=== PATIENT | male | born 1945 | race Caucasian/White ===

== ENCOUNTER 2023-09-02 18:44 | Emergency (ER) | payer MEDICARE, SELFPAY ==
[2023-09-02 18:54] VITALS: BP 143/77; PULSE 87; RESP 20; TEMP 38.5; O2SAT 98; BMI 33.0
--- NOTE | 2023-09-02 19:06 | XRR_ITS ---
PROCEDURE INFORMATION: Exam: XR Chest Exam date and time: 09/02/2023 7:11 PM Age: 77 years old Clinical indication: Patient HX: Fever; Chills; Hypoglycemia TECHNIQUE: Imaging protocol: Radiologic exam of the chest. Views: 1 view. COMPARISON: No relevant prior studies available. FINDINGS: Tubes, catheters and devices: Left atrial appendage closure device. Heart valve prosthesis. Lungs: Linear atelectasis or scar in the left lung base. The lungs are otherwise clear. Probable emphysema. Pleural spaces: Unremarkable. No pleural effusion. No pneumothorax. Heart/Mediastinum: Unremarkable. No cardiomegaly. Bones/joints: Median sternotomy changes. Degenerative shoulders. XR/XR chest 1V portable [id number] IMPRESSION: No acute findings.
--- NOTE | 2023-09-02 19:25 | ED_ITS ---
HPI - Fever 2 General: Chief Complaint: Fever Stated Complaint: Cold chills, Low blood sugar Time Seen by Provider: 09/02/23 19:02 History of Present Illness: 77-year-old gentleman traveling from [facility]. He has a history of pancreatic cancer in the distant past. He has been off chemotherapy for a year. He presents with a fever today. He has had some chills and aches. a tickle in his throat. They have been staying with family here, and the person he staying with his had a cold . He is experiencing some urinary frequency. No other specific symptoms. No bites or rashes. Physical Exam 2 Const: COMMON NORMALS: no acute distress GENERAL APPEARANCE: cooperative; not ill appearing and not frail appearing HENMT: COMMON NORMALS: normocephalic, atraumatic and Normal external nose present HEAD & SCALP: normocephalic and atraumatic FACE & SINUS: normal facial exam and face symmetric NOSE: Normal external nose present Eye: COMMON NORMALS: Equal, round and reactive pupils present and EOMs intact bilaterally PUPIL: Yes Equal, round and reactive pupils present Neck/C-Spine: GENERAL: Yes trachea midline Chest: CHEST: Yes Symmetrical chest wall rise Resp: COMMON NORMALS: normal respiratory effort, No retractions, No use of accessory muscles and clear to auscultation bilaterally AUSCULTATION: clear to auscultation bilaterally Cardio: COMMON NORMALS: regular rate and regular rhythm RATE: regular rate RHYTHM: regular rhythm GI: COMMON NORMALS: Normal to inspection, nondistended, normoactive bowel sounds present Extremity: COMMON NORMALS: no pedal edema Neuro: CONSUELO COMA SCALE: document GCS findings Pointblank coma scale eye opening: Spontaneous Consuelo coma scale verbal response: Orientated Pointblank coma scale motor response: Obey commands Consuelo coma scale total score: 15 S ENSORY EXAM: Yes extremities (intact) Psych: COMMON NORMALS: speech normal SPEECH: Yes normal speech Skin: COMMON NORMALS: no rashes or lesions noted GENERAL SKIN EXAM: no rashes or lesions noted Course 2 Vital Signs: Vital signs: Vital Signs Temperature 99.0 F 09/02/23 19:28 Pulse Rate 89 09/02/23 22:22 Respiratory Rate 20 H 09/02/23 22:22 Blood Pressure 117/60 09/02/23 22:22 Pulse Oximetry 95 09/02/23 22:22 Oxygen Delivery Me thod Room Air 09/02/23 18:54 MDM - Fever Medical Decision Making Temperature down to 99. His other vitals are stable. His platelet count is 155. Otherwise CBC is normal. BMP not remarkable. Chest x-ray is nonacute. Urinalysis is not remarkable. PCR is positive for COVID-19. Given his age, history of diabetes, he will be treated with Paxlovid. This is scripted him. Warning signs for return given. Lab Data 09/02/23 19:31 09/02/23 19:31 Radiology Impressions Chest X-Ray 09/02/23 19:06 IMPRESSION: No acute findings. Laboratory Results WBC 7.80 10^3/uL (3.29-11.43) 09/02/23 19: RBC 4.83 10^6/uL (3.85-5.65) 09/02/23 19: Hgb 12.50 g/dL (11.27-16.99) 09/02/23 19: Hct 41.0 % (37-53) 09/02/23 19: MCV 84.9 fl (82-101) 09/02/23 19: MCH 25.9 pg (27-33) L 09/02/23 19: MCHC 30.5 g/dL (30-55) 09/02/23 19: RDW 23.4 % (12.1-15.1) H 09/02/23 19:31 Plt Count 155 10^3/cmm (157-399) L 09/02/23 19: MPV 10.0 fL (7.4-10.4) 09/02/23 19:31 Neut % (Auto) 68.7 % 09/02/23 19: Lymph % (Auto) 10.6 % 09/02/23 19: [place] % (Auto) 17.4 % 09/02/23 19: Eos % (Auto) 1.7 % 09/02/23 19: Baso % (Auto) 1.3 % 09/02/23 19: Neut # (Auto) 5.36 10^3/uL (1.8-7.7) 09/02/23 19: Lymph # (Auto) 0.8 10^3/uL (0.8-4.8) 09/02/23 19:31 [place] # (Auto) 1.4 10^3/uL (0.2-0.9) H 09/02/23 19:31 Eos # (Auto) 0.1 10^3/uL (0.0-0.8) 09/02/23 19:31 Baso # (Auto) 0.1 10^3/uL (0.0-0.1) 09/02/23 19:31 Nucleated RBC % (auto) 0.3 % 09/02/23 19:31 Nucleated RBCs # 0.0 /100WBC 09/02/23 19:31 Sodium 138 mmol/L (136-145) 09/02/23 19:31 Potassium 4.5 mmol/L (3.5-5.1) 09/02/23 19:31 Chloride 102 mmol/L (98-107) 09/02/23 19:31 Carbon Dioxide 25 mmol/L (22-29) 09/02/23 19:31 Anion Gap 15.5 (5-19) 09/02/23 19:31 BUN 21 mg/dL (8-23) 09/02/23 19:31 Creatinine 1.2 mg/dL (0.7-1.2) 09/02/23 19:31 GFR Calculation Not Reportable 09/02/23 19:31 Glucose 127 mg/dL (65-115) H 09/02/23 19:31 Calculated Osmolality 291 mOsm/kg (285-295) 09/02/23 19:31 Lactic Acid 1.6 mmol/L (0.5-2.2) 09/02/23 19:31 Calcium 8.9 mg/dL (8.5-10.5) 09/02/23 19:31 Total Bilirubin 0.5 mg/dL (0.15-1.2) 09/02/23 19:31 AST 33 U/L (0-40) 09/02/23 19:31 ALT 30 U/L (0-41) 09/02/23 19:31 Alkaline Phosphatase 121 U/L (40-130) 09/02/23 19:31 Total Protein 7.9 g/dL (6.6-8.7) 09/02/23 19:31 Albumin 4.4 g/dL (3.5-5.2) 09/02/23 19:31 Globulin 3.5 g/dL (1.3-4.6) 09/02/23 19:31 Urine Color Yellow (Yellow) 09/02/23 20:56 Urine Appearance Clear (CLEAR) 09/02/23 20:56 Urine pH 8 (5-7) H 09/02/23 20:56 Ur Specific [place] 1.005 (1.005-1.030) 09/02/23 20:56 Urine Protein 1+ (Negative) H 09/02/23 20:56 Urine Glucose (UA) Norm (Normal) 09/02/23 20:56 Urine Ketones 1+ (Negative) H 09/02/23 20:56 Urine Blood Neg (Negative) 09/02/23 20:56 Urine Nitrate Negative (Negative) 09/02/23 20:56 Urine Bilirubin Neg (Negative) 09/02/23 20:56 Urine Urobilinogen 1 mg/dL (Negative) H 09/02/23 20:56 Ur Leukocyte Esterase Negative (Negative) 09/02/23 20:56 Adenovirus (PCR) Not detected (NOT DETECT) 09/02/23 19:35 C. pneumoniae DNA (PCR) Not detected (NOT DETECT) 09/02/23 19:35 Coronavirus 229E (PCR) Not detected (NOT DETECT) 09/02/23 19:35 Human Metapneumovir PCR Not detected (NOT DETECT) 09/02/23 19:35 Influenza A (H1) PCR Not detected (NOT DETECT) 09/02/23 19:35 Influ A (H1/09) PCR Not detected (NOT DETECT) 09/02/23 19:35 Influenza A (H3) PCR Not detected (NOT DETECT) 09/02/23 19:35 Influenza Type A (PCR) Not detected (NOT DETECT) 09/02/23 19:35 Influenza Type B (PCR) Not detected (NOT DETECT) 09/02/23 19:35 M. pneumoniae (PCR) Not detected (NOT DETECT) 09/02/23 19:35 Parainfluenza 1 (PCR) Not detected (NOT DETECT) 09/02/23 19:35 Parainfluenza 2 (PCR) Not detected (NOT DETECT) 09/02/23 19:35 Parainfluenza 3 (PCR) Not detected (NOT DETECT) 09/02/23 19:35 Parainfluenza 4 (PCR) Not detected (NOT DETECT) 09/02/23 19:35 RSV Type A (PCR) Not detected (NOT DETECT) 09/02/23 19:35 RSV Type B (PCR) Not detected (NOT DETECT) 09/02/23 19:35 Entero/Rhino (PCR) Not detected (NOT DETECT) 09/02/23 19:35 SARS-CoV-2 (PCR) Detected (NOT DETECT) A 09/02/23 19:35 All radiology interpretation(s) finalized by discharge Discharge Plan Discharge Patient Disposition: Home Clinical Impression: COVID-19 Condition: Stable Prescriptions: New Paxlovid 300 mg (150 mg x 2)-100 mg tablets,dose pack See Rx Instructions .ROUTE .COMPLEX Qty: 30 0RF Rx Instructions: take TWO 150 mg tablets of nirmatrelvir with ONE 100 mg tablet of ritonavir twice daily for 5 days Discharge Orders: Discharge ED (Routine); Ordered 09/02/23 Ordered By: Juancarlos Felton Patient Instructions: COVID-19 (Coronavirus Disease 2019) (ED), Opioid Safety, Pain Management Activity Restrictions/Additional Instructions: Antivirals as directed. Pick them up at the pharmacy. Stay hydrated. Tylenol for temperature. Return for shortness of breath, decreasing mentation, any other concerning symptoms. Coding Level of Care Code ED [employer] Supervisor for Raymond Gurrola
[2023-09-02 19:28] VITALS: BP 136/70; TEMP 37.2
[2023-09-02 19:39] LABS: Basophils # 0.1 10^3/uL (0.0-0.1); Basophils % 1.3 %; Eosinophils # 0.1 10^3/uL (0.0-0.8); Eosinophils % 1.7 %; Lymphocytes # 0.8 10^3/uL (0.8-4.8); Lymphocytes % 10.6 %; Mean Corpuscular HGB Conc 30.5 g/dL (30-55); Mean Corpuscular Hemoglobin 25.9 pg (27-33); Mean Corpuscular Volume 84.9 fl (82-101); Monocytes # 1.4 10^3/uL (0.2-0.9); Monocytes % 17.4 %; Neutrophils # 5.36 10^3/uL (1.8-7.7); Neutrophils % 68.7 %; Nucleated Red Blood Cells % 0.3 %; Platelet Count 155 10^3/cmm (157-399); Red Blood Count 4.83 10^6/uL (3.85-5.65); Red Cell Distribution Width 23.4 % (12.1-15.1)
[2023-09-02] MEDS: sodium chloride 0.9% 1,000 ML 999 ML IV (19:49)
[2023-09-02 20:00] LABS: Alanine Aminotransferase 30 U/L (0-41); Albumin Level 4.4 g/dL (3.5-5.2); Alkaline Phosphatase 121 U/L (40-130); Anion Gap 15.5 (5-19); Aspartate Amino Transferase 33 U/L (0-40); Blood Urea Nitrogen 21 mg/dL (8-23); Calcium 8.9 mg/dL (8.5-10.5); Carbon Dioxide 25 mmol/L (22-29); Chloride 102 mmol/L (98-107); Creatinine Clr Calc Pharmacy 64.3458; Globulin 3.5 g/dL (1.3-4.6); Glucose 127 mg/dL (65-115); Lactic Sepsis W/Reflex 1.6 mmol/L (0.5-2.2); Osmolality Calculated 291 mOsm/kg (285-295); Potassium 4.5 mmol/L (3.5-5.1); Sodium 138 mmol/L (136-145); Total Bilirubin 0.5 mg/dL (0.15-1.2); Total Protein 7.9 g/dL (6.6-8.7)
[2023-09-02 21:10] LABS: Add Urine Microscopic? NO; Charge for UA Resulting for Rev
[2023-09-02 21:26] LABS: Adenovirus Not Detected (NOT DETECT); Chlamydia Pneumoniae Not Detected (NOT DETECT); Coronavirus 229E,HKU1,NL63,OC4 Not Detected (NOT DETECT); Human Metapneumovirus Not Detected (NOT DETECT); Human Rhinovirus/Enterovirus Not Detected (NOT DETECT); Influenza A Not Detected (NOT DETECT); Influenza A H1 Not Detected (NOT DETECT); Influenza A H1-2009 Not Detected (NOT DETECT); Influenza A H3 Not Detected (NOT DETECT); Influenza B Not Detected (NOT DETECT); Mycoplasma Pneumoniae Not Detected (NOT DETECT); Parainfluenza Virus Type 1 Not Detected (NOT DETECT); Parainfluenza Virus Type 2 Not Detected (NOT DETECT); Parainfluenza Virus Type 3 Not Detected (NOT DETECT); Parainfluenza Virus Type 4 Not Detected (NOT DETECT); Respiratory Syncytial Virus A Not Detected (NOT DETECT); Respiratory Syncytial Virus B Not Detected (NOT DETECT)
[2023-09-02 21:36] LABS: SARS-COV-2 Detected (NOT DETECT)
[2023-09-02 21:50] LABS: Bilirubin Urine Neg (Negative); Blood Urine Neg (Negative); Glucose Urine UA Norm (Normal); Ketones Urine 1+ (Negative); Leukocyte Esterase Urine Negative (Negative); Nitrate Urine Negative (Negative); Protein Urine 1+ (Negative); Specific Gravity, Urine 1.005 (1.005-1.030); Urine Appearance Clear (CLEAR); Urine Color Yellow (Yellow); Urobilinogen Urine 1 mg/dL (Negative); pH Urine 8 (5-7)
[2023-09-02 22:22] VITALS: BP 117/60; PULSE 89; RESP 20; O2SAT 95
== END 2023-09-02 22:23 | disposition home or self-care (01) ==
PROVIDERS: Emergency Provider Emergency Medicine
DX: U07.1 COVID-19 (principal); Z85.07 Personal history of malignant neoplasm of pancreas; Z86.16 Personal history of COVID-19
CPT/HCPCS: 36415; 71045; 80053; 81003; 83605; 85025; 87040; 87486; 87581; 87633; 96360; 96361; 99284; J7030